=== PATIENT | female | born 1965 ===

== ENCOUNTER 2020-05-07 16:23 | Emergency (ER) | payer OTHER ==
[~2020-05-07] VITALS: Ht 170.2 cm; Wt 90.9 kg
[2020-05-07 16:25] VITALS: BP 205/109
[2020-05-07 17:18] LABS: BASOPHILS # (AUTO) 0.1 X10'3 (0-0.2); EOSINOPHILS # (AUTO) 0.1 X10'3 (0-0.9); HEMATOCRIT 38.4 % (35.0-45.0); LYMPHOCYTES # (AUTO) 2.8 X10'3 (1.1-4.8); LYMPHOCYTES % (AUTO) 45.4 % (21-51); MEAN CORPUSCULAR HEMOGLOBIN 20.7 PG (27.0-31.0); MEAN CORPUSCULAR HGB CONC 31.3 g/dL (33.0-36.5); MEAN CORPUSCULAR VOLUME 66.3 FL (78-98); MEAN PLATELET VOLUME 9.4 FL (7.4-10.4); MONOCYTES # (AUTO) 0.4 X10'3 (0-0.9); MONOCYTES % (AUTO) 6.6 % (2-12); NEUTROPHILS # (AUTO) 2.8 X10'3 (1.8-7.7); PLATELET COUNT 278 X10'3 (140-440); RED CELL DISTRIBUTION WIDTH 18.2 % (11.5-14.5); WHITE BLOOD COUNT 6.2 X10'3 (4.5-11.0)
[2020-05-07 17:36] LABS: ALANINE AMINOTRANSFERASE 28 U/L (12-78); ALKALINE PHOSPHATASE 111 IU/L (46-116); ANION GAP 11 (8-16); ASPARTATE AMINO TRANSFERASE 16 U/L (10-37); BILIRUBIN,TOTAL 0.4 MG/DL (0.1-1.0); BLOOD UREA NITROGEN 9 MG/DL (7-18); CALCIUM 9.5 MG/DL (8.5-10.1); CHLORIDE 106 MMOL/L (99-107); GLUCOSE 86 MG/DL (70-104); POTASSIUM 3.5 MMOL/L (3.5-5.1); SODIUM 142 MMOL/L (135-145); TOTAL CARBON DIOXIDE 24.6 MMOL/L (24-32); TOTAL PROTEIN 8.2 G/DL (6.4-8.2); eGFR 65 ML/MIN
[2020-05-07] MEDS ORDERED: CYCL-1 PO (17:49)
[2020-05-07] MEDS ORDERED: ONDA4TAB6 PO (17:49)
[2020-05-07] MEDS ORDERED: NAPR-56 PO (17:49)
[2020-05-07 18:41] LABS: ANISOCYTOSIS 2+; ELLIPTOCYTES 1+; PLATELET ESTIMATE NORMAL
== END 2020-05-07 18:03 | disposition home or self-care (01) ==
LOC: ER 16:24
DX: S33.5XXA Sprain of ligaments of lumbar spine, initial encounter (principal); R10.12 Left upper quadrant pain; R11.0 Nausea; M25.511 Pain in right shoulder; Z88.0 Allergy status to penicillin; Z79.899 Other long term (current) drug therapy; V87.7XXA Person injured in collision between other specified motor vehicles (traffic), initial encounter; Y93.89 Activity, other specified; Y92.89 Other specified places as the place of occurrence of the external cause; Y99.8 Other external cause status
CPT/HCPCS: 36415; 71045; 76857; 80053; 85008; 85025; 85610; 86885; 86900; 86901; 93005; 99285